=== PATIENT | male | born 1960 | race Caucasian/White ===

== ENCOUNTER → 2024-06-26 07:46 | Outpatient (REF) | payer OTHER, SELFPAY | LOC: HWRCS 07:46 | PROVIDERS: ATTENDING PHYSICIAN Internal Medicine Cardiovascular Disease | DX: Q23.1 Congenital insufficiency of aortic valve (principal) | CPT/HCPCS: 93306 ==

== ENCOUNTER → 2024-06-29 08:06 | Outpatient (REF) | payer OTHER, SELFPAY | LOC: RAD 08:06 | PROVIDERS: ATTENDING PHYSICIAN Thoracic Surgery (Cardiothoracic Vascular Surgery) | DX: Z98.890 Other specified postprocedural states (principal) | CPT/HCPCS: 71275; Q9967 ==

== ENCOUNTER 2024-10-29 15:31 | Emergency (ER) | payer OTHER, SELFPAY ==
[2024-10-29 15:50] VITALS: BP 141/62
[2024-10-29 16:00] VITALS: BP 112/74
[2024-10-29] MEDS: ZOFRAN 4 MG IV (16:20)
--- NOTE | 2024-10-29 16:20 | ED.GENMED ---
History of Present Illness
General
Chief Complaint: Fever
Source: patient
Exam Limitations: none
Time Seen by Provider: 10/29/24 16:20
Nursing documentation reviewed up to this point in time: agreed with
History of Present Illness
History of Present Illness:
63-year-old male with history of TIA, A-fib on Coumadin, aortic valve replacement, coronary artery bypass, appendectomy, tonsillectomy presents for waking this a.m. feeling fine but when he got to work at 9 a.m. developed shaking chills and fever.
Nausea and retching with bile emesis.
Past History
Past History
ED Past Medical History: Arrthythmia (Paroxysmal atrial fibrillation status post ablation June 2018), HTN (Borderline hypertension) and Valvular disease (Asymptomatic bicuspid aortic valve)
ED Past Surgical History: Appendectomy and Cardiac (Atrial fibrillation ablation June 2018, aortic valve and ascending aorta replacement November 2022)
Social History
Tobacco: Non-smoker
Alcohol: Occasional
Personal:
Living: with family
Employment: Employed
Family History
Family History: Diabetes (Mother) and Other (Mother with history of CVA)
Review of Systems
Review of Systems
Allergies reviewed?: Yes
All Other Systems: ROS reviewed and negative except as documented in HPI and ROS
Constitutional: Reports fever and chills
EENT: Denies sore throat
Respiratory: Denies cough or trouble breathing
Cardiac: Denies chest pain
ABD/GI: Reports nausea and vomiting; Denies abdominal pain or diarrhea
: Denies dysuria, frequency or flank pain
Musculoskeletal: Reports no symptoms
Skin: Reports no symptoms
Neurological: Reports no symptoms
Phy Exam
Physical Exam
Physical Exam:
GENERAL: No acute distress. A&Ox3.
CONSTITUTIONAL: Afebrile.
EYES: clear, conjunctivae normal
ENMT: moist mucus membranes, Pharynx nl
RESPIRATORY: Regular respirations, nonlabored, lungs clear.
CARDIOVASCULAR: Regular rate and rhythm, no murmurs, no rubs.
GI: Soft, nontender, normal BS
MUSCULOSKELETAL: Moves with ease. Well perfused.
SKIN: Warm, dry, pink
PSYCH: Normal mood and affect. Well kept, interactive and appropriate
NEUROLOGIC: Awake, alert and oriented. No focal neurological deficits
Course
Orders/Labs/Results
Orders:
Orders
10/29/24 16:12
EKG [Electrocardiogram (*1)] Urgent
Reason for Study: Abdominal Pain
EKG- Treatment ONCE
10/29/24 16:14
Complete Blood Count/With Diff Urgent
Comprehensive Metabolic Panel Urgent
10/29/24 16:18
Ondansetron Injectable [Zofran] 4 mg .ROUTE .STK-MED ONE
10/29/24 16:19
Ondansetron Injectable [Zofran] 4 mg IV NOW STA
10/29/24 16:28
Acetaminophen [Tylenol] 1,000 mg PO NOW STA
10/29/24 16:29
0.9% Sodium Chloride 1000 ml [Nss] 1,000 ml IV BOLUS
10/29/24 16:30
CR Chest - 2 Views Urgent
Comment:
Reason For Exam: fever, chills
10/29/24 18:49
COVID-19 Antigen Urgent
Source: Nasal Swab
Influenza A+B Rapid Molecular Urgent
MARIO ALBERTO Source: Nasal Swab
Specimen Description:
10/29/24 18:51
Urinalysis Reflex To Culture Urgent
Date Specimen was Collected: 10/29/24
Time Specimen was Collected: 18:48
10/29/24 19:57
Lactic Acid Q4H
Comment: CANCEL 2nd LACTIC ACID IF 1st LACTIC ACID IS LESS THAN 2
Blood Culture Q30M
MARIO ALBERTO Source: Blood/Venous
Specimen Description:
Blood Culture Q30M
MARIO ALBERTO Source: Blood/Venous
Specimen Description:
10/29/24 21:15
Acetaminophen [Tylenol] 650 mg .ROUTE .STK-MED ONE
10/29/24 21:16
Acetaminophen [Tylenol] 650 mg PO NOW STA
10/29/24 21:18
Acetaminophen [Tylenol] 325 mg .ROUTE .STK-MED ONE
Abnormal Lab Results
10/29/24
16:14
WBC 14.1 H 10^3/uL
(4.8-10.8)
RBC 4.43 L 10^6/uL
(4.70-6.10)
MCH 33.4 H pg
(27.0-31.0)
Abs Immat Gran (auto) 0.1 H 10^3/uL
(0-0.05)
Absolute Neuts (auto) 12.7 H 10^3/uL
(1.4-6.5)
Absolute Lymphs (auto) 0.7 L 10^3/uL
(1.2-3.4)
Neutrophils % 89.6 H %
(42.2-75.2)
Lymphocytes % 5.0 L %
(20.5-51.1)
Glucose 124 H mg/dl
(70-99)
10/29/24 16:14
10/29/24 16:14
Vital Signs
Initial and Last Documented VS:
Initial Vital Signs
BP
141/62
10/29/24 15:50
Last Documented Vital Signs
Temp Pulse Resp BP Pulse Ox
101.8 F H 81 21 109/64 94
10/29/24 16:17 10/29/24 17:45 10/29/24 17:45 10/29/24 17:12 10/29/24 17:45
MDM/Problems Addressed
MDM/Problems Addressed:
63-year-old male with history of TIA, A-fib on Coumadin, aortic valve replacement, coronary artery bypass, appendectomy, tonsillectomy presents for waking this a.m. feeling fine but when he got to work at 9 a.m. developed shaking chills and fever.
Nausea and retching with bile emesis.
Temperature 102.9 for this examiner
EKG: Sinus rhythm with first-degree block no significant change
5:00 PM:
CBC: WBC 14.1 with a left shift
CMP normal
8:30 PM
In to reevaluate patient. He is feeling much better, he looks much better
CXR: NAD
Covid neg
Temp: 100.5
Lactic acid within normal limits
Blood cultures x [address] Horne the need or not for antibiotics due to aortic valve replacement, Records reviewed, Pt with history of biological (bovine) valve replacement, no need for prophylactic antibiotics
Pt and are comfortable going home, they know if blood cultures come back positive he will have to return
*EKG
EKG Intrepretation Date: 10/29/24
Interpretation: abnormal
Heart Rate: 73
Rate: normal
Rhythm: sinus
[place]: normal axis
Interval: first degree heart block
QRS Pattern: normal QRS
Ischemia: no ischemia
*Critical Care Note
Total Time (30-74mins, 75-104mins- exclusive of procedures): Not Applicable
ED Attending Note
-
Portions of this chart may have been created with voice recognition software.� Occasional wrong word or��sound alike� substitutions may have occurred due to the inherent limitations of voice recognition software.
Discharge Plan
Departure
Patient Disposition: Home (Routine Discharge)
Date of Disposition: 10/29/24
Time of Disposition: 20:35
Patient with high blood pressure during this ER visit?: No
Condition: Good
Discharge Problem:
Fever
Instructions: Fever, Adult (DC)
Prescriptions:
No Action
fexofenadine 60 mg Tablet
60 mg PO DAILY PRN (Reason: HAYFEVER)
aspirin 81 mg Tablet,Chewable
81 mg PO DAILY Qty: 0 0RF
Rx Instructions:
Please purchase over the counter
pantoprazole 40 mg Tablet,Delayed Release (Dr/Ec)
40 mg PO DAILY Qty: 30 0RF
warfarin 5 mg tablet
10 mg PO WETH
warfarin 5 mg tablet
5 mg PO SUMOTUFRSA
amiodarone [Pacerone] 200 mg tablet
200 mg PO DAILY
cephalexin 500 mg Capsule
500 mg PO QID Qty: 28 1RF
metoprolol tartrate 25 mg Tablet
25 mg PO BID Qty: 60 3RF
Referrals:
NONE,* [Family Provider, Internal Medicine]
Activity Restrictions/Additional Instructions:
As we discussed, your workup here today shows nothing worrisome.
If your blood culture comes back positive in 2 or 3 days we will contact you and you will have to come back
As long as you are feeling well just take Tylenol 650 mg every 4-6 hours as needed for fever
Return here immediately for shaking chills, fever that is not relieved with Tylenol or feeling sicker in any way.
Interventions
Interventions:
*Risk Screen - Suicide Last Done: 10/29/24 15:42
*General Assessment Last Done: 10/29/24 16:25
*Neglect/Abuse Screening Last Done: 10/29/24 15:42
*ED- Fall Risk Assessment Last Done: 10/29/24 16:25
*Nursing Disposition Last Done: 10/29/24 21:21
ED- Neurological Assessment Last Done: 10/29/24 16:24
ED-Skin Assessment Last Done: 10/29/24 16:24
Discharge Date and Time
Discharge Date/Time: 10/29/24 21:21
Print Language: GUYANESE
[2024-10-29 16:23] LABS: % Basophils 0.3 % (0-2); % Eosinophils 0.2 % (0-6); % Immature Granulocytes 0.4 % (0-0.5); % Monocytes 4.5 % (1.7-9.3); % Neutrophils 89.6 % (42.2-75.2); Absolute Immature Granulocytes 0.1 10^3/uL (0-0.05); Absolute Lymphocytes 0.7 10^3/uL (1.2-3.4); Absolute Monocytes 0.6 10^3/uL (0.1-0.6); Absolute Neutrophils 12.7 10^3/uL (1.4-6.5); Hemoglobin 14.8 g/dL (13.0-18.0); Mean Corpuscular Hgb 33.4 pg (27.0-31.0); Mean Corpuscular Volume 90.3 fL (80.0-94.0); Mean Platelet Volume 9.3 fL (7.4-10.4); Nucleated Red Blood Cells % 0 % (-); Platelet Count 180 10^3/uL (130-400); Red Blood Cell Count 4.43 10^6/uL (4.70-6.10); White Blood Cell Count 14.1 10^3/uL (4.8-10.8)
[2024-10-29 16:33] LABS: ALT (SGPT) 27 U/L (0-50); AST (SGOT) 27 U/L (17-59); Albumin 4.7 g/dl (3.5-5.0); Alkaline Phosphatase 59 U/L (38-126); Blood Urea Nitrogen 19 mg/dl (9-20); Calcium 9.8 mg/dl (8.4-10.2); Carbon Dioxide 23 mmol/L (22-30); Chloride 106 mmol/L (98-107); Glucose 124 mg/dl (70-99); Potassium 4.1 mmol/L (3.5-5.1); Sodium 139 mmol/L (135-145); Total Bilirubin 1.3 mg/dl (0.2-1.3); Total Protein 8.2 g/dl (6.3-8.2); eGFR > 60.00
[2024-10-29] MEDS: NSS 1000 IV (16:34)
[2024-10-29] MEDS: TYLENOL 1000 MG PO (16:36)
[2024-10-29 17:12] VITALS: BP 109/64
[2024-10-29 18:57] LABS: Urine Albumin Negative (Neg - Trace); Urine Bilirubin Negative (Negative); Urine Character Clear (Clear); Urine Color Yellow; Urine Glucose Negative (Negative); Urine Ketone Negative (Negative); Urine Leukocyte Negative (Negative); Urine Nitrite Negative (Negative); Urine Occult Blood Negative (Negative); Urine Urobilinogen Negative (Neg - 1+)
[2024-10-29 19:20] LABS: COVID-19 Antigen Negative (Negative)
[2024-10-29 20:24] LABS: Lactic Acid 1.3 mmol/L (0.7-2.0)
[2024-10-29] MEDS: TYLENOL 650 MG PO (21:16)
== END 2024-10-29 21:21 | disposition home or self-care (01) ==
LOC: EMR 15:31
PROVIDERS: Registered Nurse; EMERGENCY PHYSICIAN Emergency Medicine
DX: R50.9 Fever, unspecified (principal); I48.91 Unspecified atrial fibrillation; Z79.01 Long term (current) use of anticoagulants; I10 Essential (primary) hypertension; Z82.3 Family history of stroke; Z83.3 Family history of diabetes mellitus; Z86.73 Personal history of transient ischemic attack (TIA), and cerebral infarction without residual deficits; Z90.49 Acquired absence of other specified parts of digestive tract; Z95.1 Presence of aortocoronary bypass graft
CPT/HCPCS: 99283; 96374; 96361; 71046; 80053; 81003; 83605; 85025; 87040; 87502; 87811; 93005